=== PATIENT | female | born 1995 | race African-American/Black ===

== ENCOUNTER 2023-12-01 14:20 | Emergency (ER) | payer MEDICAID ==
[~2023-12-01] VITALS: Ht 177.8 cm; Wt 65.0 kg
[2023-12-01 14:28] VITALS: O2SAT 100
[2023-12-01 14:54] LABS: CLARITY URINE CLOUDY (CLEAR); COLOR URINE YELLOW (YELLOW); GLUCOSE URINE NEGATIVE (NEGATIVE); KETONES URINE NEGATIVE (NEGATIVE); LEUKOCYTE ESTERASE URINE TRACE (NEGATIVE); NITRITE URINE NEGATIVE (NEGATIVE); OCCULT BLOOD URINE NEGATIVE (NEGATIVE); PH URINE >=9.0 (4.5-8.0); PROTEIN URINE TRACE (NEGATIVE); SPECIFIC GRAVITY URINE 1.024 (1.005-1.030)
[2023-12-01 15:06] LABS: BACTERIA URINE 1+; RBC URINE 0-2 /hpf (0-2); SQUAMOUS EPITHELIAL CELL URINE 2+ /lpf (RARE/1+)
[2023-12-01 15:07] LABS: AMORPHOUS SEDIMENT URINE 2+ /lpf; YEAST URINE NONE SEEN
[2023-12-01 15:17] LABS: EOSINOPHILS % 8.4 % (0.0-5.0); HEMATOCRIT. 34.5 % (36.0-48.0); HEMOGLOBIN. 10.9 g/dL (12.0-16.0); LYMPHOCYTES % 33.2 % (20.0-50.0); MEAN CORPUSCULAR HEMOGLOBIN 27.6 pg (28.0-32.0); MEAN CORPUSCULAR HGB CONC 31.7 g/dL (31.0-37.0); MEAN CORPUSCULAR VOLUME 87.1 fL (81.0-99.0); MEAN PLATELET VOLUME 7.6 fl (7.4-10.4); MONOCYTES % 5.7 % (2.0-8.0); NEUTROPHILS % 51.7 % (40.0-76.0); PLATELET 213 x1000/uL (130-400); RED BLOOD CELL COUNT 3.96 mill/uL (4.2-5.4); RED CELL DISTRIBUTION WIDTH 13.2 % (11.6-14.6); WHITE BLOOD COUNT 6.8 x1000/uL (4.5-11.0)
[2023-12-01 15:22] LABS: PROTHROMBIN TIME 10.8 sec (9.6-11.0)
[2023-12-01 15:27] LABS: ALANINE AMINOTRANSFERASE 8 IU/L (10-49); ALBUMIN 3.9 g/dL (3.2-4.8); ASPARTATE AMINOTRANSFERASE 13 IU/L (<34); BILIRUBIN TOTAL 0.4 mg/dL (0.1-1.0); CARBON DIOXIDE 26 mEq/L (21-32); CHLORIDE 109 mEq/L (98-107); CREATININE 0.7 mg/dL (0.6-1.0); GLUCOSE 82 mg/dL (70-105); POTASSIUM 3.7 mEq/L (3.5-5.1); PROTEIN TOTAL 6.2 g/dL (6.0-8.3); SODIUM 139 mEq/L (136-145); UREA NITROGEN BLOOD 10 mg/dL (9-23)
[2023-12-01 15:29] LABS: TROPONIN I HIGH SENSITIVITY < 4 ng/L (3.0-34)
[2023-12-01] MEDS ORDERED: ALBU05 NEB (18:27)
[2023-12-01] MEDS ORDERED: P50 MT (18:27)
[2023-12-01] MEDS ORDERED: ALBU6.7H15 INH (18:27)
[2023-12-01] MEDS ORDERED: ALBUTEROL (0.083%) 2.5MG/3ML NEB HHN ONE (18:30)
[2023-12-01 18:40] VITALS: PULSE 74; RESP 22
[2023-12-01 19:27] VITALS: BP 105/60; PULSE 81; RESP 18; TEMP 98.2
== END 2023-12-01 19:34 | disposition home or self-care (01) ==
LOC: ER 14:20
DX: R06.00 Dyspnea, unspecified (principal); B34.9 Viral infection, unspecified; J45.909 Unspecified asthma, uncomplicated
CPT/HCPCS: 80053; 81003; 81025; 85025; 85610; 84484; 36415; 71045; 94640; 93005; 99285; Z7610 ×3